=== PATIENT | male | born 1970 | race Caucasian/White ===

== ENCOUNTER 2020-05-04 23:26 | Inpatient (IN) | payer OTHER ==
[~2020-05-04] VITALS: Ht 190.5 cm; Wt 113.6 kg
[2020-05-04] MEDS ORDERED: TAMS-13 PO (23:35)
[2020-05-04] MEDS ORDERED: GABA-1216 PO (23:35)
[2020-05-05] MEDS ORDERED: ChlordiazePOXIDE HCL 25 MG CAPSULE PO ONE (01:00)
[2020-05-05 01:46] LABS: BASOPHILS % (AUTO) 0.5 % (0.0-2.0); EOSINOPHILS % (AUTO) 4.2 % (1.0-6.0); HEMATOCRIT 42.8 % (41-53); HEMOGLOBIN 14.1 g/dL (13.5-17.5); LYMPHOCYTES # (AUTO) 1.4 K/uL (1.0-4.8); LYMPHOCYTES % (AUTO) 28.2 % (22.0-44.0); MEAN CORPUSCULAR HEMOGLOBIN 29.3 pg (26.0-34.0); MEAN CORPUSCULAR VOLUME 89 fL (80-100); MONOCYTES # (AUTO) 0.5 K/uL (0.1-1.0); NEUTROPHILS % (AUTO) 58.1 % (40.0-70.0); PLATELET COUNT (AUTO) 136 K/uL (150-450); RED BLOOD CELL COUNT(AUTO) 4.81 MIL/uL (4.50-5.90); RED CELL DISTRIBUTION WIDTH 13.9 % (11.5-14.5)
[2020-05-05 01:52] LABS: ANION GAP 7 mmol/L (8-16); CALCIUM, TOTAL 9.3 mg/dL (8.8-10.5); CARBON DIOXIDE 31 mmol/L (22-29); CHLORIDE 102 mmol/L (98-107); CREATININE 1.08 mg/dL (0.60-1.30); GLOMERULAR FILTR. RATE CALC > 60 mL/min (>60); GLUCOSE,RANDOM 108 mg/dL (70-110); SODIUM SERUM 140 mmol/L (136-145); UREA NITROGEN, BLOOD 14 mg/dL (7-18)
[2020-05-05 01:58] LABS: ALANINE AMINOTRANSFERASE 23 U/L (12-78); ALBUMIN 3.7 g/dL (3.4-5.0); ALKALINE PHOSPHATASE 82 U/L (46-116); ASPARTATE AMINOTRANSFERASE 26 U/L (15-37); BILIRUBIN,TOTAL 0.5 mg/dL (0.1-1.0); TOTAL PROTEIN, SERUM 8.1 g/dL (6.4-8.2)
[2020-05-05] MEDS ORDERED: 0.9% SODIUM CHLORIDE 10 ML SYRINGE IVP PRN (02:15)
[2020-05-05] MEDS ORDERED: ACETAMINOPHEN 325 MG TABLET PO PRN ×2 (02:15)
[2020-05-05] MEDS ORDERED: ONDANSETRON HCL 4 MG/2 ML VIAL IVP PRN ×2 (02:15)
[2020-05-05] MEDS ORDERED: MORPHINE SULFATE 2 MG/ML SYRINGE IVP PRN (02:15)
[2020-05-05] MEDS ORDERED: METH40TA2 PO (02:52)
[2020-05-05 03:29] VITALS: BP 147/79
[2020-05-05] MEDS: 1: MAGNESIUM SULFATE 2 GM, MVI, ADULT NO.1 WITH VIT K 10 ML, THIAMINE 100 MG, FOLIC ACID IV SCH ×10 (03:50→14:58)
[2020-05-05] MEDS: LORazepam 2 MG TABLET PO PRN ×6 (03:59→22:47)
[2020-05-05] MEDS ORDERED: KETOROLAC TROMETHAMINE 30 MG/ML VIAL IVP PRN (05:45)
[2020-05-05 08:50] VITALS: BP 146/76
[2020-05-05] MEDS: ENOXAPARIN SODIUM 40 MG/0.4 ML PF SYRINGE SQ SCH (08:56)
[2020-05-05] MEDS: DOCUSATE SODIUM 100 MG CAPSULE PO SCH ×2 (08:56→20:15)
[2020-05-05] MEDS: AmLODIPine BESYLATE 2.5 MG TABLET PO SCH (08:56)
[2020-05-05] MEDS ORDERED: METH10SO PO (13:57)
[2020-05-05] MEDS ORDERED: SODIUM CHLORIDE 0.9% 1,000 ML ONE (14:57)
[2020-05-05] MEDS: PANTOPRAZOLE SODIUM 40 MG DR TABLET PO SCH (14:58)
[2020-05-05 20:48] VITALS: BP 147/86
[2020-05-06] MEDS: LORazepam 2 MG TABLET PO PRN (00:21)
[2020-05-06] MEDS: 1: MAGNESIUM SULFATE 2 GM, MVI, ADULT NO.1 WITH VIT K 10 ML, THIAMINE 100 MG, FOLIC ACID IV SCH ×15 (00:53→18:58)
[2020-05-06 04:46] VITALS: BP 119/70
[2020-05-06] MEDS ORDERED: LORazepam 2 MG TABLET PO PRN (07:00)
[2020-05-06 08:37] VITALS: BP 178/91
[2020-05-06] MEDS: ENOXAPARIN SODIUM 40 MG/0.4 ML PF SYRINGE SQ SCH (08:48)
[2020-05-06] MEDS: PANTOPRAZOLE SODIUM 40 MG DR TABLET PO SCH (08:48)
[2020-05-06] MEDS: AmLODIPine BESYLATE 2.5 MG TABLET PO SCH (08:49)
[2020-05-06] MEDS: DOCUSATE SODIUM 100 MG CAPSULE PO SCH ×2 (08:49→21:11)
[2020-05-06] MEDS ORDERED: LORazepam 2 MG TABLET PO SCH (09:00)
[2020-05-06] MEDS ORDERED: CloNIDine HCL 0.1 MG TABLET PO PRN (13:00)
[2020-05-06] MEDS: ChlordiazePOXIDE HCL 25 MG CAPSULE PO PRN ×2 (13:12→19:00)
[2020-05-06] MEDS ORDERED: LORazepam 2 MG/ML VIAL IVP PRN (13:30)
[2020-05-06 16:30] VITALS: BP 147/77
[2020-05-06] MEDS ORDERED: SODIUM CHLORIDE 0.9% 1,000 ML ONE (18:58)
[2020-05-06 21:05] VITALS: BP 147/79
[2020-05-07] MEDS: ChlordiazePOXIDE HCL 25 MG CAPSULE PO PRN ×3 (01:00→20:39)
[2020-05-07 03:11] VITALS: BP 158/87
[2020-05-07] MEDS ORDERED: SODIUM CHLORIDE 0.9% 1,000 ML ONE (06:02)
[2020-05-07] MEDS: 1: MAGNESIUM SULFATE 2 GM, MVI, ADULT NO.1 WITH VIT K 10 ML, THIAMINE 100 MG, FOLIC ACID IV SCH ×10 (06:05→09:08)
[2020-05-07] MEDS: ENOXAPARIN SODIUM 40 MG/0.4 ML PF SYRINGE SQ SCH (07:52)
[2020-05-07] MEDS: DOCUSATE SODIUM 100 MG CAPSULE PO SCH ×2 (07:52→20:23)
[2020-05-07] MEDS: PANTOPRAZOLE SODIUM 40 MG DR TABLET PO SCH (07:53)
[2020-05-07] MEDS: AmLODIPine BESYLATE 2.5 MG TABLET PO SCH (07:55)
[2020-05-07 08:15] VITALS: BP 152/90
[2020-05-07] MEDS: MULTIVITAMINS WITH MINERALS, THERAPEUTIC TABLET PO SCH (15:56)
[2020-05-07] MEDS: FOLIC ACID 1 MG TABLET PO SCH (15:56)
[2020-05-07] MEDS: THIAMINE 100 MG TABLET PO SCH (15:56)
[2020-05-07 20:22] VITALS: BP 150/88
[2020-05-08 00:24] VITALS: BP 137/83
[2020-05-08] MEDS: ChlordiazePOXIDE HCL 25 MG CAPSULE PO PRN ×3 (02:45→15:04)
[2020-05-08] MEDS ORDERED: LORazepam 1 MG TABLET PO PRN (07:00)
[2020-05-08 08:10] VITALS: BP 155/74
[2020-05-08] MEDS ORDERED: LORazepam 1 MG TABLET PO SCH (09:00)
[2020-05-08] MEDS: DOCUSATE SODIUM 100 MG CAPSULE PO SCH ×2 (09:00→09:07)
[2020-05-08] MEDS: PANTOPRAZOLE SODIUM 40 MG DR TABLET PO SCH (09:06)
[2020-05-08] MEDS: THIAMINE 100 MG TABLET PO SCH (09:07)
[2020-05-08] MEDS: MULTIVITAMINS WITH MINERALS, THERAPEUTIC TABLET PO SCH (09:07)
[2020-05-08] MEDS: ENOXAPARIN SODIUM 40 MG/0.4 ML PF SYRINGE SQ SCH (09:09)
[2020-05-08] MEDS: FOLIC ACID 1 MG TABLET PO SCH (09:09)
[2020-05-08] MEDS: AmLODIPine BESYLATE 2.5 MG TABLET PO SCH (09:09)
[2020-05-08] MEDS ORDERED: AMLO2.5T96 PO (13:38)
[2020-05-08] MEDS ORDERED: FOLI-130 PO (13:39)
[2020-05-08] MEDS ORDERED: MULT-248 PO (13:40)
[2020-05-08] MEDS ORDERED: THIA100T80 PO (13:41)
[2020-05-08] MEDS ORDERED: ACET-3207 PO (13:42)
[2020-05-09] MEDS ORDERED: LORazepam 1 MG TABLET PO PRN (07:00)
== END 2020-05-08 17:15 | DRG 897 ==
LOC: EMS 23:26 → 6S 05-05 02:08
PROVIDERS: ADMIT Internal Medicine; ATTEND Internal Medicine
DX: F10.10 Alcohol abuse, uncomplicated (principal); Y90.9 Presence of alcohol in blood, level not specified; I10 Essential (primary) hypertension; Z20.828 Contact with and (suspected) exposure to other viral communicable diseases; F41.9 Anxiety disorder, unspecified; J45.909 Unspecified asthma, uncomplicated; F17.200 Nicotine dependence, unspecified, uncomplicated; Z98.1 Arthrodesis status; Z88.0 Allergy status to penicillin
CPT/HCPCS: 87426; G0480; J1650; J3411; J3475; J3490; J7030; 71045-TC